=== PATIENT | female | born 1940 | race Caucasian/White ===

== ENCOUNTER 2017-10-04 06:53 | Day surgery (SDC) | payer OTHER, BC ==
--- NOTE | 2017-10-03 12:14 | HP ---
- Patient Scheduled date of Surgery: 10/04/17 Scheduled Surgical Procedure: Phacoemulsification and cataract extraction with PCIOL Affected Eye: Left Chief Complaint (Indication for surgery): Decreased vision affecting ADLs - Ocular History Other Eye History: BRVO (with cme OS) Eye Medications: vigamox, ilevro Previous Eye Surgery: s/p ce/pciol OD +24.5 retrobulbar - Medical History Illnesses: Asthma, Hypertension, Diabetes (hypothyroid) Current Medications: Ambulatory Orders Amlodipine Besylate/Benazepril [Lotrel 10-20 mg Capsule] 40 each PO DAILY Atorvastatin Ca [Lipitor -] 40 mg PO HS 09/30/15 Candesartan/Hydrochlorothiazid [Atacand Hct 32-12.5 mg -] 1 tab PO DAILY Darifenacin Hydrobromide [Enablex] 15 mg PO DAILY 09/30/15 Donepezil HCl [Aricept] 10 mg PO DAILY 09/30/15 Furosemide [Lasix -] 40 mg PO DAILY 09/30/15 Insulin (Levemir) [Levemir Vial -] 40 unit SQ DAILY 09/30/15 Levothyroxine [Synthroid -] 300 mcg PO DAILY 09/30/15 Raloxifene HCl [Evista] 60 mg PO DAILY 09/30/15 Sitagliptin Phos/Metformin HCl [Janumet 50-1,000 mg Tablet] 2,000 mg PO DAILY Allergies/Adverse Reactions: Allergies Allergy/AdvReac Type Severity Reaction Status Date / Time Iodinated Contrast- Oral and Allergy Severe Verified 09/30/15 07:26 IV Dye [Iodinated Contrast Media - IV Dye] IV CONTRAST DYE Allergy Severe Swelling Uncoded 09/29/15 10:59 Ocular Examination - Best Corrected Visual Acuity Distance: Right eye: 20/25 Distance: Left eye: 20/40 - External/Slit Lamp Examination Abnormalities: AC shallow - Intraocular Pressure Intraocular Pressure - Right eye: 15 Intraocular Pressure-Left eye: 15 - Lens Lens: 2-3+ NS 2+ cortical change - Vitreous/Retina Vitreous/Retina: C:D 0.35 M: circinate ring, v/p wnl - Special Examination M - Right eye: +0.25-0.50 x 165 M - Left eye: +0.75-0.75 x 015 K - Right eye: 42.75/44.75 x 070 K - Left eye: 42.75/43.75 x 110 AL - Left eye: 22.30 IOL bag: +24.5 hoya 251 IOL sulcus: +23.5 hoya 231 IOL AC: +20.5 d MTA 4uo - Impression Impression: Cataract Left Eye - Plan Plan: Phacoemulsification and cataract extraction - IOL Left eye Post-hospital care will be provided in office on: 10/05/17
--- NOTE | 2017-10-03 12:56 | HP ---
History & Physical Update - History History: No Change - Physical Physical: No Change - Assessment Assessment: No Change - Plan Plan: No Change
[2017-10-03 15:21] VITALS: BMI 43.5
[~2017-10-04 06:53] MED LIST: ACETAMINOPHEN 325 MG TABLET (FP) PO PRN; CIPROFLOXACIN HCL 0.3% OPHTH 2.5ML BOTTLE OP SCH; DICLOFENAC SODIUM 0.1% OPHTHALMIC 2.5ML BOTTLE OP SCH; PHENYLEPHRINE 2.5% OPHTH SOLN 15 ML BOTTLE OP SCH; TOBRAMYCIN/DEXAMETHASONE OPHTH. OINTMENT 1 TUBE OS ONE; TROPICAMIDE 1% OPHTH SOLN 15 ML BOTTLE OP SCH
[2017-10-04] MEDS ORDERED: PHENYLEPHRINE 2.5% OPHTH SOLN 15 ML BOTTLE ONE (07:08)
[2017-10-04] MEDS ORDERED: TROPICAMIDE 1% OPHTH SOLN 15 ML BOTTLE ONE (07:08)
[2017-10-04] MEDS ORDERED: DICLOFENAC SODIUM 0.1% OPHTHALMIC 2.5ML BOTTLE ONE (07:08)
[2017-10-04] MEDS ORDERED: CIPROFLOXACIN 0.3% EYE DROPS 5 ML BOTTLE ONE (07:08)
[2017-10-04 07:21] VITALS: TEMP 97.6
[2017-10-04] MEDS ORDERED: EPINEPHrine/PF 1 MG/1 ML (1:1,000) AMPULE ONE (07:26)
[2017-10-04] MEDS ORDERED: BUPIVACAINE HCL/PF 0.75% 10 ML VIAL ONE (07:26)
[2017-10-04] MEDS ORDERED: TOBRAMYCIN/DEXAMETHASONE OPHTH. OINTMENT 1 TUBE ONE (07:26)
[2017-10-04] MEDS ORDERED: LIDOCAINE HCL/PF 1% SDV 5ML VIAL ONE (07:27)
[2017-10-04] MEDS ORDERED: BSS (NA/CA/MG/K) BALANCED SALT SOLUTION OPHTH SOLN 15 ML BOTTLE ONE (07:27)
[2017-10-04] MEDS ORDERED: LIDOCAINE HCL/PF 2% SDV 5ML VIAL ONE ×2 (07:27→08:25)
[2017-10-04] MEDS ORDERED: POVIDONE-IODINE 5% OPHTHALMIC PREP 30 ML SOLUTION ONE (07:27)
[2017-10-04] MEDS ORDERED: TROPICAMIDE 1% OPHTH SOLN 15 ML BOTTLE OS ONE ×3 (07:30→07:40)
[2017-10-04] MEDS ORDERED: CIPROFLOXACIN HCL 0.3% OPHTH 2.5ML BOTTLE OS ONE ×3 (07:30→07:40)
[2017-10-04] MEDS ORDERED: PHENYLEPHRINE 2.5% OPHTH SOLN 15 ML BOTTLE OS ONE ×3 (07:30→07:40)
[2017-10-04] MEDS ORDERED: DICLOFENAC SODIUM 0.1% OPHTHALMIC 2.5ML BOTTLE OS ONE ×3 (07:30→07:40)
[2017-10-04] MEDS ORDERED: PROPOFOL 20 ML ONE ×2 (08:02)
[2017-10-04] MEDS ORDERED: SUCCINYLCHOLINE CHLORIDE 200 MG/10 ML VIAL ONE (08:04)
[2017-10-04] MEDS ORDERED: LIDOCAINE HCL/PF 2% SDV 5ML VIAL INF ONE (08:14)
[2017-10-04] MEDS ORDERED: BUPIVACAINE HCL/PF 0.75% 10 ML VIAL RB ONE (08:14)
[2017-10-04] MEDS ORDERED: POVIDONE-IODINE 5% OPHTHALMIC PREP 30 ML SOLUTION OS ONE (08:16)
[2017-10-04] MEDS ORDERED: TETRACAINE 0.5% OPHTH SOLN 2 ML BOTTLE OS ONE (08:19)
[2017-10-04] MEDS ORDERED: BSS (NA/CA/MG/K) BALANCED SALT SOLUTION OPHTH SOLN 15 ML BOTTLE OS ONE ×2 (08:22)
[2017-10-04] MEDS ORDERED: CHONDROITIN SU A/HYALUR SOD 1 KIT IO ONE ×3 (08:22)
[2017-10-04] MEDS ORDERED: hydrALAZINE HCL 20 MG/ML VIAL ONE (08:25)
[2017-10-04] MEDS ORDERED: EPINEPHrine/PF 1 MG/1 ML (1:1,000) AMPULE SQ ONE (08:36)
[2017-10-04] MEDS ORDERED: MIDAZOLAM HCL 2 MG/2 ML SINGLE DOSE VIAL ONE (08:56)
[2017-10-04] MEDS ORDERED: DEXAMETHASONE SOD PHOSPHATE 4 MG/1 ML VIAL ONE (09:45)
[2017-10-04] MEDS ORDERED: GENTAMICIN SO4 80 MG/2 ML VIAL ONE (09:45)
[2017-10-04] MEDS ORDERED: GENTAMICIN SO4 80 MG/2 ML VIAL IVPB ONE (09:51)
[2017-10-04] MEDS ORDERED: DEXAMETHASONE SOD PHOSPHATE 4 MG/1 ML VIAL NR ONE (09:51)
[2017-10-04] MEDS ORDERED: TOBRAMYCIN/DEXAMETHASONE OPHTH. OINTMENT 1 TUBE OS ONE (09:53)
--- NOTE | 2017-10-04 10:02 | OP ---
Ophthalmology Operative Note Pre-Operative Diagnosis: Cataract Affected Eye: Left Operation: Other (phacoemulsificaiton and cataract extraction/ Anterior vitrectomy left eye) Findings: catarct left eye Post-Operative Diagnosis: Same as Pre-op Air Brake Man: None Anesthesiologist: Angelica Mcgregor MD Anesthesia: Retrobulbar Specimens Removed: none Estimated blood loss: <1 cc Drains & Tubes with Location: none Operative Report Dictated: No
[2017-10-04] MEDS ORDERED: ACETAMINOPHEN 325 MG TABLET (FP) ONE ×2 (13:49→13:50)
[2017-10-04 15:33] VITALS: BP 112/60; PULSE 90
--- NOTE | 2017-10-05 07:54 | OP ---
DATE OF OPERATION: 10/04/2017 PREOPERATIVE DIAGNOSIS: Cataract, left eye. POSTOPERATIVE DIAGNOSIS: Cataract, left eye. PROCEDURE: Phacoemulsification and cataract extraction, anterior vitrectomy, left eye due to posterior capsular tear. SURGEON: Heidy Chappell MD MOLECULAR SPECTROSCOPIST: None. ANESTHESIA: Retrobulbar block. ANESTHESIOLOGIST: Angelica Mcgregor MD OPERATIVE PROCEDURE: Following satisfactory intravenous sedation, the patient received local anesthesia using a 50/50 mixture of lidocaine 2% and Marcaine 0.75%. A van Lint lid block was delivered to the left eye using 3 mL of the mixture and a retrobulbar injection using 3 mL of the mixture. The patient was then prepped and draped in the usual sterile fashion so as to expose only the left eye. Ophthalmic Betadine was instilled into the inferior fornix, and the lashes were taped out of the surgical field. An eyelid speculum was placed into the left eye. A paracentesis was made in inferior clear cornea at the limbus. Viscoelastic material was instilled into the anterior chamber via the paracentesis. A 2.4-mm keratome was then used to create the main incision in temporal clear cornea at the limbus. A continuous curvilinear capsulorrhexis was performed using cystotome and Utrata forceps. Hydrodissection of the lens cortex was performed using BSS on a cannula until the nucleus was noted to be freely rotating. The phacoemulsification tip was inserted via the main wound and used to sculpt 2 perpendicular grooves into the lens nucleus. Viscoat was injected into the groove, and the nucleus cracker was used to crack the lens into 4 quadrants. Each quadrant was lifted out of the capsule into the iris plane and individually phacoemulsified. At this stage, a tear was noted in the posterior capsule. Therefore, an anterior vitrectomy was performed and used to remove the remaining nuclear fragments. A dry aspiration of the cortical material was performed. The integrity of the anterior capsule was in question and the patient could not sit still due to diffiulty breathing and nausea with anesthesia therefore an iol was not placed. Thee anterior vitrectomy was continued and the wound was tested. It was free of vitreous. The pupil appeared to be round. Therefore, BSS was placed in the eye, and two 10-0 nylon sutures were placed, one across the wound and one across the paracentesis. The wound was again tested. It was watertight, and injections were given into the inferior fornix of gentamicin and dexamethasone. The dose was 20 mg of gentamicin and 2 mg of dexamethasone. Approximately 1 mL was given in total. TobraDex ointment was placed into the eye. The speculum was removed from the eye, and a pressure patch and shield were placed on the eye. The patient was transferred to the recovery room and will be seeing Retina the following day to remove a small retained lens fragment if necessary and to place a secondary IOL. HEIDY CHAPPELL M.D. [id number] MTDD
== END 2017-10-04 14:00 | disposition home or self-care (01) ==
LOC: JASU-SURG 06:53
PROVIDERS: ATTEND Ophthalmology
PROC: 08953ZZ Drainage of Left Vitreous, Percutaneous Approach (ICD-10-PCS; 2017-10-04)
PROC: 085K3ZZ Destruction of Left Lens, Percutaneous Approach (ICD-10-PCS; principal; 2017-10-04 07:30)
DX: H26.9 Unspecified cataract (principal); H59.219 Accidental puncture and laceration of unspecified eye and adnexa during an ophthalmic procedure

== ENCOUNTER 2024-08-14 10:00 | Day surgery (SDC) | payer OTHER, BC ==
[2024-08-06 10:43] VITALS: BMI 39.6
[2024-08-14 12:58] VITALS: TEMP 98.4
[2024-08-14 13:56] VITALS: BP 126/58; PULSE 57; RESP 17
== END 2024-08-14 14:31 | disposition home or self-care (01) ==
LOC: JASU-ENDO 10:00
PROVIDERS: ATTEND Internal Medicine Gastroenterology
PROC: 0DJD8ZZ Inspection of Lower Intestinal Tract, Via Natural or Artificial Opening Endoscopic (ICD-10-PCS; principal; 2024-08-14 11:00)
DX: Z12.11 Encounter for screening for malignant neoplasm of colon (principal); K57.30 Diverticulosis of large intestine without perforation or abscess without bleeding; K64.8 Other hemorrhoids; I10 Essential (primary) hypertension; E11.9 Type 2 diabetes mellitus without complications; Z79.84 Long term (current) use of oral hypoglycemic drugs; Z86.0100 Personal history of colon polyps, unspecified; Z80.0 Family history of malignant neoplasm of digestive organs